=== PATIENT | male | born 1985 | race Two or more races ===

== ENCOUNTER 2020-06-17 05:10 | Emergency (ER) | payer SELFPAY ==
[2020-06-17 05:44] VITALS: BP 121/83; TEMP 97.9; BMI 28.2
--- NOTE | 2020-06-17 06:25 | PDOC ---
History of Present Illness - General Chief Complaint: Psychiatric Stated Complaint: PANIC ATTACK Time Seen by Provider: 06/17/20 05:44 History Source: Patient Exam Limitations: No Limitations - History of Present Illness Initial Comments: 06/17/20 06:23 Germán Skelton is a 35M with PMH anxiety presents with reported anxiety attack. 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 No inciting event, but has been having insomnia. Described as sensation that he was going to , chest pain, diaphoresis. Has had decades of anxiety and multiple episodes of panic attacks each year. Took an unprescribed Xanax and quickly felt better, but called EMS because he was concerned he was having a heart attack. Denies fever/chills, N/V, SOB, abd pain, urinary sx, dizziness. Recovered from covid-19, Ab+. No prior cardiac history, no history of MO, PE, or arrhythmia. Evaluated in emergency rooms for similar episodes in the past without cardiac diagnosis. Does not see a doctor regularly. Denies alcohol/drug/tobacco use. NKDA. No other PMH. No PSH. Past History - Medical History Allergies/Adverse Reactions: Allergies Allergy/AdvReac Type Severity Reaction Status Date / Time No Known Allergies Allergy Verified 06/17/20 05:37 Home Medications: Ambulatory Orders NK [No Known Home Medication] 02/13/20 COPD: No - Psycho-Social/Smoking History Smoking History: Unknown if ever smoked Have you smoked in the past 12 months: No Information on smoking cessation initiated: No - Substance Abuse Hx (Audit-C & DAST Scrn) How often the patient has a drink containing alcohol: Never Score: In Men: 4 or > Positive; In Women: 3 or > Positive: 0 Screen Result (Pos requires Nsg. Audit-10AR): Negative In the last yr the pt used illegal drug/Rx for NonMed reason: No Score: Yes response is considered Positive: 0 Screen Result (Positive result requires Nsg. DAST-10): Negative Review of Systems - Review of Systems Able to Perform ROS?: Yes Constitutional: No: Chills, Fever HEENTM: No: Symptoms Reported Respiratory: No: Cough, Shortness of Breath Cardiac (ROS): Yes: Chest Pain, Palpitations, Chest Tightness. No: Syncope ABD/GI: No: Constipated, Diarrhea, Nausea, Poor Appetite, Poor Fluid Intake, Vomiting : No: Symptoms Reported Musculoskeletal: No: Symptoms Reported Integumentary: No: Symptoms Reported Neurological: No: Symptoms reported Psychiatric: Yes: Anxiety Endocrine: No: Symptoms Reported Hematologic/Lymphatic: No: Symptoms Reported All Other Systems: Reviewed and Negative *Physical Exam - Vital Signs Last Vital Signs Temp Pulse Resp BP Pulse Ox 97.9 F 89 16 121/83 97 06/17/20 05:38 06/17/20 05:38 06/17/20 05:38 06/17/20 05:38 06/17/20 05:38 - Physical Exam General Appearance: Yes: Nourished, Appropriately Dressed, Other (sleeping in bed, arousable but still drowsy, fingernails painted with various insignias). No: Apparent Distress HEENT: positive: EOMI, Normal ENT Inspection, Normal Voice, Symmetrical, Pharynx Normal. negative: Scleral Icterus (R), Scleral Icterus (L), Pharyngeal Erythema, Tonsillar Exudate, Tonsillar Erythema, Nasal Congestion Neck: positive: Trachea midline, Normal Thyroid, Supple. negative: Tender, Rigid, Lymphadenopathy (R), Lymphadenopathy (L), Tender lateral, Tender midline Respiratory/Chest: positive: Lungs Clear, Normal Breath Sounds. negative: Chest Tender, Respiratory Distress, Accessory Muscle Use, Crackles, Rales, Rhonchi, Stridor, Wheezing Cardiovascular: positive: Regular Rhythm, Regular Rate, Other (chest non- tender). negative: Murmur Gastrointestinal/Abdominal: positive: Normal Bowel Sounds, Flat, Soft. negative: Tender, Organomegaly, Pulsatile Mass, Guarding, Rebound Musculoskeletal: positive: Normal Inspection. negative: CVA Tenderness, CVA Tenderness (R), CVA Tenderness (L), Vertebral Tenderness Extremity: positive: Normal Capillary Refill, Normal Inspection, Normal Range of Motion, Pelvis Stable. negative: Tender, Cyanosis, Swelling, Calf Tenderness Integumentary: positive: Normal Color, Dry, Warm Neurologic: positive: medical care manager II-XII NML intact, Fully Oriented, Alert, Normal Mood/Affect, Normal Response, Motor Strength 5/5, Other Medical Decision Making - Medical Decision Making 06/17/20 06:46 Patient is a 35M with [facility] anxiety presents with chest pain that patient says is the same as prior anxiety attacks. VSS, patient drowsy after Xanax but in NAD, denies symptoms at this time. No prior history of true ACS, low suspicion of ACS as underlying cause given history, presentation, lack of other symptoms. ECG shows NSR with R axis deviataion, HR 64, QTc 418, no FREDERICK/D or TWI concerning for cardiac pathology. Patient is stable for discharge home with psych/cardiology follow-up. Advised to not take unprescribed drugs. Discharge - Discharge Information Problems reviewed: Yes Clinical Impression/Diagnosis: Chest pain Qualifiers: Chest pain type: unspecified Qualified Code(s): R07.9 - Chest pain, unspecified Condition: Improved Disposition: HOME - Admission No - Follow up/Referral [place] [facility] [place] [facility] Group] [facility] [Provider Group] Tyler Van MD [Staff Physician] - Norm Valera MD [Staff Physician] - Yaya Crowder MD [Staff Physician] - Sudhakar Donis MD [Staff Physician] - - Patient Discharge Instructions Patient Printed Discharge Instructions: DI for Anxiety -- Adult Additional Instructions: Today you were evaluated for chest pain and anxiety. Your heart was evaluated and there is no evidence of a heart attack. Your symptoms are probably due to anxiety, as you suspected. Do not use any more unprescribed medications without being evaluated by a doctor, as this is dangerous and potentially deadly. You should follow-up with a broom stitcher and a psychiatrist for further evaluation of your chest pain and anxiety. At home, if you experience worsening chest pain, difficulty breathing, anxiety, or any other new or concerning symptoms, please return to the emergency room. - Post Discharge Activity Work/Back to School Note: My Personal Safety Plan
--- NOTE | 2020-06-17 06:50 | PDOC ---
Attending Attestation - Resident Resident Name: Cristobal Maria - ED Attending Attestation I have performed the following: I have examined & evaluated the patient, The case was reviewed & discussed with the resident, I agree w/resident's findings & plan - HPI HPI: 06/17/20 06:47 Germán Skelton is a 35M with H anxiety presents with reported anxiety attack. 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 No inciting event, but has been having insomnia. Described as sensation that he was going to , chest pain, diaphoresis. Has had decades of anxiety and multiple episodes of panic attacks each year. Took an unprescribed Xanax and quickly felt better, but called EMS because he was concerned he was having a heart attack. - Physicial Exam PE: 06/17/20 06:47 Agree with the resident's HPI and PE as documented in the electronic medical record. NAD, well appearing, Sleeping comfortably, EOMI, PERRL, nl conjunctiva, anicteric; neck supple. lungs clear, RRR, abdomen soft nontender. no rebound, guarding. Back nontender. HOWARD x4, no focal neuro deficits. No peripheral edema. normal color for ethnicity, WWP. - Medical Decision Making 06/17/20 06:48 Vital Signs Temp Pulse Resp BP Pulse Ox 97.9 F 89 16 121/83 97 06/17/20 05:38 06/17/20 05:38 06/17/20 05:38 06/17/20 05:38 06/17/20 05:38 Vital signs reviewed within normal limits Patient in no acute distress, no active chest pain or shortness of breath, neurologically intact. Patient did take street Xanax prior to presentation and may be a little somnolent from there. He is not exhibiting any anxiety attack symptoms ECG is sinus rhythm, no ischemic findings are noted, no ST elevations or depressions, clinically doubt cardiac or ACS etiology no indication for labs or imaging Pt to be discharged in stable condition. Patient made aware of clinical impression, treatment recommendations and disposition plan, return precautions discussed (including but not limited to new or persistent/worsening symptoms, pain, fevers, or signs of infection, chest pain, respiratory distress, inability to tolerate oral intake, dehydration, syncope, or neurologic changes). Follow up with PMD as recommended, follow up information provided, take medications as instructed for duration of time. continue with supportive care, avoid triggers and precipitants. All questions answered to patient's satisfaction and expressed understanding and comfort with this. At the time of discharge, the patient is alert, clinically improved, tolerating po and verbalizes understanding of instructions, satisfied with the care received and felt comfortable with the plan. Patient does not suffer from an acute life-threatening medical condition at this time and is safe for outpatient follow-up. 06/17/20 06:50 Heart Score/ECG Review #1 ECG reviewed & interpreted by me at: 06:45 General ECG Interpretation: Sinus Rhythm, Normal Rate, Normal Intervals 06/17/20 06:49 EKG normal sinus rhythm 64 bpm, no interval abnormalities, narrow QRS, ST and T wave segments and morphology normal. Nonspecific T wave abnormalities Discharge - Discharge Information Problems reviewed: Yes Clinical Impression/Diagnosis: Chest pain Qualifiers: Chest pain type: unspecified Qualified Code(s): R07.9 - Chest pain, unspecified Condition: Improved Disposition: HOME - Admission No - Follow up/Referral Referrals: [facility] [place] [facility] [Provider Group] [facility] [Provider Group] Tyler Van MD [Staff Physician] - Norm Valera MD [Staff Physician] - Yaya Crowder MD [Staff Physician] - Sudhakar Donis MD [Staff Physician] - - Patient Discharge Instructions Patient Printed Discharge Instructions: DI for Anxiety -- Adult Additional Instructions: Today you were evaluated for chest pain and anxiety. Your heart was evaluated and there is no evidence of a heart attack. Your symptoms are probably due to anxiety, as you suspected. Do not use any more unprescribed medications without being evaluated by a doctor, as this is dangerous and potentially deadly. You should follow-up with a recovery agent and a psychiatrist for further evaluation of your chest pain and anxiety. At home, if you experience worsening chest pain, difficulty breathing, anxiety, or any other new or concerning symptoms, please return to the emergency room. - Post Discharge Activity Work/Back to School Note: My Personal Safety Plan
[2020-06-17 07:07] VITALS: PULSE 85
--- NOTE | 2020-06-17 11:27 | EKG ---
Test Reason : Blood Pressure : / mmHG Vent. Rate : 064 BPM Atrial Rate : 064 BPM P-R Int : 174 ms QRS Dur : 084 ms QT Int : 406 ms P-R-T Axes : 048 137 031 degrees QTc Int : 418 ms NORMAL SINUS RHYTHM RIGHT AXIS DEVIATION ABNORMAL ECG WHEN COMPARED WITH ECG OF 13-FEB-2020 05:10, NO SIGNIFICANT CHANGE WAS FOUND Confirmed by LEROY HERNANDEZ MD ([id number]) on 06/17/2020 11:26:44 AM Referred By: Confirmed By:LEROY HERNANDEZ MD
== END 2020-06-17 07:07 | disposition home or self-care (01) ==
LOC: JER 05:10
DX: F41.9 Anxiety disorder, unspecified (principal)
CPT/HCPCS: 93005; 93010; 99283-25